=== PATIENT | male | born 1955 | race Caucasian/White ===

== ENCOUNTER → 2021-06-08 | Outpatient (CLI) | payer MEDICARE, OTHER ==
[~2021-06-08] MED LIST: CELEBREX100 MG PO; CRESTOR10 MG PO; FLOMAX0.4 MG PO; IOPAMIDOL 370 MG/ML 200 ML INFUS..BTL INJ ONE; LEVAQUIN500 MG PO; LISINOPRIL10 MG PO; SODIUM CHLORIDE 0.9% 250ML 250 ML ONE; TYLENOL WITH C1 EACH PO
[2021-06-08 12:02] LABS: CREATININE, SERUM 1.02 mg/dL (0.72-1.25)
== END ==
LOC: CT 11:20
PROVIDERS: ATTEND Urology
DX: R31.21 Asymptomatic microscopic hematuria (principal)
CPT/HCPCS: 36415; 74178; 82565; 84520; J7050; Q9967

== ENCOUNTER → 2021-08-13 | Day surgery (SDC) | payer MEDICARE, OTHER ==
[2021-08-12 09:37] LABS: BASOPHILS # (AUTO) 0.1 (0.0-0.1); BASOPHILS % 0.8 % (0.0-1.0); EOSINOPHILS # (AUTO) 0.4 (0.0-0.4); EOSINOPHILS % 4.6 % (0.0-6.0); HEMATOCRIT 49.1 % (38.2-49.6); HEMOGLOBIN 16.3 g/dL (14.0-18.0); LYMPHOCYTES # (AUTO) 2.1 (1.0-3.2); LYMPHOCYTES % 27.1 % (18.0-39.1); MEAN CORPUSCULAR HEMOGLOBIN 29.4 pg (28-32); MEAN CORPUSCULAR HGB CONC 33.2 g/dL (31-35); MEAN CORPUSCULAR VOLUME 88.6 fL (81-99); MONOCYTES # (AUTO) 0.5 (0.2-0.8); NEUTROPHILS # (AUTO) 4.7 (2.1-6.9); NEUTROPHILS % 61.2 % (38.7-80.0); PLATELET COUNT 358 x10e3/uL (140-360); RED BLOOD COUNT 5.54 x10e6/uL (4.3-5.7); RED CELL DISTRIBUTION WIDTH 13.5 % (11.7-14.4)
[~2021-08-13] MED LIST changes: +ATARAX PO; +BELLADONNA/OPIUM 30 MG SUPP RC ONE; +CIPRO500 MG PO; +DEXAMETHASONE SOD PHOS INJ 4 MG/ML SDV ONE; +FENTANYL CITRATE/PF 100MCG/2 ML INJ ONE; +GENTAMICIN 80MG/NS 100 ML 100 ML IV ONE; +GENTAMICIN 80MG/NS IV ONE; +IOPAMIDOL 300MG/ML 50ML INFUS..BTL IV ONE; -IOPAMIDOL 370 MG/ML 200 ML INFUS..BTL INJ ONE; +LIDOCAINE HCL 2% LOCAL INJ 5 ML SDV VIAL INJ ONE; +MEDROL DOSE PACK PO; +MIDAZOLAM HCL 2 MG/2 ML VIAL ONE; +ONDANSETRON HCL INJ 2MG/ML 2ML 2 MG/ML VIAL ONE; +PHENAZOPYRIDINE HCL 100 MG TAB ONE; +POVIDONE IODINE 0.05% 0.05 % ML PO ONE; +PROPOFOL IV EMULSION 10 MG/ML 20 ML VIAL ONE; +SEVOFLURANE INHAL SOLN 250 ML PEN BTL ONE; -SODIUM CHLORIDE 0.9% 250ML 250 ML ONE; +ZESTRIL40 MG PO
[2021-08-13 12:58] LABS: ANION GAP 13.8 mmol/L (8-16); CALCIUM 9.6 mg/dL (8.4-10.2); CREATININE, SERUM 1.18 mg/dL (0.72-1.25); POTASSIUM 3.8 mmol/L (3.5-5.1)
[2021-08-13 15:10] VITALS: BP 160/94
== END | disposition home or self-care (01) ==
LOC: OR 08:00
PROVIDERS: ATTEND Urology
DX: N41.1 Chronic prostatitis (principal); R31.9 Hematuria, unspecified; N40.1 Benign prostatic hyperplasia with lower urinary tract symptoms; R39.14 Feeling of incomplete bladder emptying; R39.12 Poor urinary stream; N52.9 Male erectile dysfunction, unspecified; Z87.891 Personal history of nicotine dependence; Z88.5 Allergy status to narcotic agent; Z88.6 Allergy status to analgesic agent; Z91.041 Radiographic dye allergy status; Z01.810 Encounter for preprocedural cardiovascular examination; Z01.812 Encounter for preprocedural laboratory examination; Z01.818 Encounter for other preprocedural examination; Z20.822 Contact with and (suspected) exposure to COVID-19; N35.912 Unspecified bulbous urethral stricture, male
CPT/HCPCS: 36415 ×2; 52281; 71046; 74420; 80048; 85025; 93005; C1758; J1100; J1580; J2001; J2250; J2405; J2704; J3010; Q9967; U0002

== ENCOUNTER 2021-08-18 00:11 | Emergency (ER) | payer MEDICARE, OTHER ==
[~2021-08-18] VITALS: Ht 170.2 cm; Wt 78.9 kg
[~2021-08-18 00:11] MED LIST changes: -ATARAX PO; -BELLADONNA/OPIUM 30 MG SUPP RC ONE; -CIPRO500 MG PO; -DEXAMETHASONE SOD PHOS INJ 4 MG/ML SDV ONE; -FENTANYL CITRATE/PF 100MCG/2 ML INJ ONE; -GENTAMICIN 80MG/NS 100 ML 100 ML IV ONE; -GENTAMICIN 80MG/NS IV ONE; -IOPAMIDOL 300MG/ML 50ML INFUS..BTL IV ONE; -LIDOCAINE HCL 2% LOCAL INJ 5 ML SDV VIAL INJ ONE; -MEDROL DOSE PACK PO; -MIDAZOLAM HCL 2 MG/2 ML VIAL ONE; -ONDANSETRON HCL INJ 2MG/ML 2ML 2 MG/ML VIAL ONE; -PHENAZOPYRIDINE HCL 100 MG TAB ONE; -POVIDONE IODINE 0.05% 0.05 % ML PO ONE; -PROPOFOL IV EMULSION 10 MG/ML 20 ML VIAL ONE; -SEVOFLURANE INHAL SOLN 250 ML PEN BTL ONE; -ZESTRIL40 MG PO
[2021-08-18] MEDS ORDERED: DEXAMETHASONE 4 MG TAB PO STA (00:27)
[2021-08-18] MEDS ORDERED: DIPHENHYDRAMINE HCL 25 MG CAP PO ONE (00:30)
[2021-08-18] MEDS ORDERED: FAMOTIDINE 20 MG TAB PO ONE (00:30)
[2021-08-19] MEDS ORDERED: ZESTRIL40 MG PO (18:37)
== END 2021-08-18 01:48 | disposition home or self-care (01) ==
LOC: ER 00:23
DX: L27.0 Generalized skin eruption due to drugs and medicaments taken internally (principal); T39.8X5A Adverse effect of other nonopioid analgesics and antipyretics, not elsewhere classified, initial encounter; I10 Essential (primary) hypertension; E78.5 Hyperlipidemia, unspecified
CPT/HCPCS: 99284; J8540

== ENCOUNTER 2021-08-19 12:12 | Observation (INO) | payer MEDICARE, OTHER ==
[~2021-08-19] VITALS: Ht 167.6 cm; Wt 78.9 kg
[2021-08-19] MEDS ORDERED: FAMOTIDINE 20 MG TAB PO ONE (12:45)
[2021-08-19] MEDS ORDERED: PREDNISONE 20 MG TAB PO ONE (12:45)
[2021-08-19] MEDS ORDERED: DIPHENHYDRAMINE HCL 25 MG CAP PO ONE (12:45)
[2021-08-19 13:22] LABS: CLARITY,URINE CLEAR (CLEAR); COLOR,URINE YELLOW (YELLOW); KETONES,URINE NEGATIVE (NEGATIVE); LEUKOCYTE ESTERASE ,URINE NEGATIVE (NEGATIVE); MUCUS,URINE RARE (RARE); NITRITE,URINE NEGATIVE (NEGATIVE); PROTEIN,URINE DIPSTICK NEGATIVE (NEGATIVE); RBC,URINE 0-5 /HPF (0-5); URINE UROBILINOGEN 0.2 mg/dL (0.2 - 1); WBC,URINE (MAN) 0-5 /HPF (0-5)
[2021-08-19] MEDS ORDERED: LORAZEPAM 1 MG TAB PO ONE (15:00)
[2021-08-19 17:40] VITALS: BP 130/96
[2021-08-19 18:03] VITALS: BP 178/90
[2021-08-19 18:08] VITALS: BP 178/90
[2021-08-19 18:15] VITALS: BP 178/90
[2021-08-19 18:35] VITALS: BP 178/90
[2021-08-19] MEDS ORDERED: ZESTRIL40 MG PO (18:37)
[2021-08-19 20:00] VITALS: BP_SYST 131; BP_SYST 178; BP_DIAS 90
[2021-08-19] MEDS ORDERED: MELATONIN 5 MG TABLET PO SCH (21:00)
[2021-08-19] MEDS ORDERED: HYDROXYZINE HCL 25 MG TAB PO PRN (23:45)
[2021-08-19] MEDS ORDERED: ACETAMINOPHEN 325 MG TAB PO PRN (23:45)
[2021-08-20] VITALS: BP 115/76
[2021-08-20 04:00] VITALS: BP 94/71
[2021-08-20 07:55] VITALS: BP 131/90
[2021-08-20 08:00] VITALS: BP 131/90
[2021-08-20] MEDS ORDERED: TAMSULOSIN HCL 0.4 MG CAP PO SCH (09:00)
[2021-08-20] MEDS ORDERED: LISINOPRIL 20 MG TAB PO SCH (09:00)
[2021-08-20] MEDS ORDERED: MEDROL DOSE PACK PO (09:28)
[2021-08-20] MEDS ORDERED: CIPRO500 MG PO (09:28)
[2021-08-20] MEDS ORDERED: ATARAX PO (09:30)
== END 2021-08-20 10:00 | disposition home or self-care (01) ==
LOC: ER 12:47 → ERHOLD 15:06 → MED/SURG 17:34
PROVIDERS: ADMIT Internal Medicine; ATTEND Internal Medicine
DX: R21 Rash and other nonspecific skin eruption (principal); T36.8X5A Adverse effect of other systemic antibiotics, initial encounter; T37.0X5A Adverse effect of sulfonamides, initial encounter; Z20.822 Contact with and (suspected) exposure to COVID-19; F41.9 Anxiety disorder, unspecified
CPT/HCPCS: 81001; 93005; 94799; 99284; G0378 ×2; J7512; U0002

== ENCOUNTER → 2023-06-30 | Outpatient (REF) | payer MEDICARE ==
[~2023-06-30] MED LIST changes: +ATARAX PO; +CIPRO500 MG PO; +IOPAMIDOL 370 MG/ML 100 ML INFUS..BTL INJ ONE; +MEDROL DOSE PACK PO; +SODIUM CHLORIDE 0.9% 250ML 250 ML ONE; +ZESTRIL40 MG PO
[2023-06-30 08:45] LABS: CREATININE, SERUM 1.1 mg/dL (0.72-1.25)
== END ==
LOC: CT 07:15
PROVIDERS: ATTEND Urology
DX: R31.21 Asymptomatic microscopic hematuria (principal)
CPT/HCPCS: 36415; 74178; 82565; 84520; J7050; Q9967

== ENCOUNTER → 2025-06-13 | Outpatient (REF) | payer MEDICARE ==
[~2025-06-13] MED LIST changes: +ALIGN4 MG PO; +CEPHALEXIN500 MG PO; +CICLOPIROX15 GM TOP; +Docusate Sodium PO; -IOPAMIDOL 370 MG/ML 100 ML INFUS..BTL INJ ONE; +LEVOFLOXACIN250 MG PO; +NICODERM CQ1 EAC2 TOP; +OMEPRAZOLE40 MG PO; +PYRIDIUM100 MG PO; -SODIUM CHLORIDE 0.9% 250ML 250 ML ONE; +TRAZODONE HCL50 MG PO; +ZYRTEC10 MG PO
== END ==
LOC: CT 10:20
PROVIDERS: ATTEND Urology
DX: N20.0 Calculus of kidney (principal)
CPT/HCPCS: 74176